=== PATIENT | female | born 1950 | race Caucasian/White ===

== ENCOUNTER 2018-03-03 06:00 | Emergency (ER) | payer MEDICARE, OTHER ==
--- NOTE | 2018-03-03 06:11 | ED Physician Documentation ---
PD HPI UPPER EXT INJURY - Stated complaint Stated Complaint: FALL/HAND INJURY - Chief complaint Chief Complaint: Trauma Ext - History obtained from History obtained from: Patient - History of Present Illness Location: Left, Wrist Type of injury: Fall Where injury occurred: A house / apartment Timing - onset: Enter time (approximately 22:00), Last night Timing - details: Abrupt onset Associated symptoms: Swelling. No: Weakness, Numbness Recently seen: Not recently seen - Additonal information Additional information: patient is visiting [facility], so she was not familiar with the layout of where she is staying. Last night at approximately 10 PM, she was walked towards a light fixture to turn it on and she tripped, fell backwards, injuring left wrist. She is right-hand dominant. c/o left wrist pain and swelling Review of Systems Musculoskeletal: reports: Joint pain (left wrist), Joint swelling (left wrist) Neurologic: denies: Focal weakness, Numbness, Head injury, LOC PD PAST MEDICAL HISTORY - Present Medications Home Medications: Ambulatory Orders Medication Instructions Recorded Confirmed oxyCODONE/ACET 5/325 [Percocet 5 1 - 2 each PO Q6H PRN #14 tablet 03/03/18 mg/325 mg] - Allergies Allergies/Adverse Reactions: Allergies Allergy/AdvReac Type Severity Reaction Status Date / Time acetaminophen [From Vicodin] AdvReac Rash Verified 03/03/18 06:14 hydrocodone [From Vicodin] AdvReac Rash Verified 03/03/18 06:14 PD ED PE NORMAL - Vitals Vital signs reviewed: Yes - General General: Alert and oriented X 3, No acute distress, Well developed/nourished - Neuro Neuro: No motor deficit, No sensory deficit PD ED PE EXPANDED - Extremities Extremities: Other (left wrist swelling, echymosis, tenderness (predominantly lateral aspect)) RIYA UE/Hands Visual: 1 - bruising, swelling, tenderness Results - Vitals Vitals: Vital Signs - 24 hr 03/03/18 06:05 Temperature 36.2 C L Heart Rate 77 Respiratory 17 Rate Blood Pressure 148/95 H O2 Saturation 98 Oxygen O2 Source Room air - Rads (name of study) left wrist xrays Radiology: Prelim report reviewed, See rad report Procedures - Splint (location) Upper extremity left Splint applied by: Physician Type of splint: Fiberglass, Short arm, Thumb spica Other: Patient tolerated well, No complications, Neurovascular intact, Sling provided PD MEDICAL DECISION MAKING - ED course Complexity details: reviewed results, re-evaluated patient, considered differential, d/w patient, d/w family ED course: declined analgesics in ED, will take ibuprofen PRN pain but also agrees with rx for percocet to use if ibuprofen ineffective. Departure - Departure Disposition: Home, Self Care Clinical Impression: Left wrist sprain Qualifiers: Encounter type: initial encounter Qualified Code(s): S63.502A - Unspecified sprain of left wrist, initial encounter Condition: Good Instructions: ED Sling, ED Splint Care Fiberglass, ED Sprain Wrist Follow-Up: Mushtaq Moore MD [Provider Admit Priv/Credential] - Within 1 week Prescriptions: oxyCODONE/ACET 5/325 [Percocet 5 mg/325 mg] 1 - 2 each PO Q6H PRN #14 tablet PRN Reason: Pain Discharge Date/Time: 03/03/18 07:50
[2018-03-03 06:14] VITALS: BP 148/95
--- NOTE | 2018-03-03 06:42 | XRAY Report ---
EXAM: LEFT WRIST RADIOGRAPHY EXAM DATE: 03/03/2018 06:27 AM. CLINICAL HISTORY: Fall, tenderness, pain. COMPARISON: None. TECHNIQUE: 4 views. FINDINGS: Bones: There is a small well-corticated fragment at the radial styloid region, representing a sequela of a remote injury versus unfused apophysis. No definite acutely displaced fracture or suspicious [place] lesion is demonstrated at this time. Joints: There is no dislocation demonstrated. Severe first CMC joint degenerative change. At least mi ld triscaphe joint degenerative change also present. Soft Tissues: No significant soft tissue swelling. IMPRESSION: No acute bony abnormality demonstrated. [facility] Referring Provider Line: [phone] SITE ID: [id number]
--- NOTE | 2018-03-03 06:42 | XRAY Preliminary Report ---
Exam: XR WRIST 3 VIEW LT IMPRESSION: No acute bony abnormality demonstrated. [facility] SITE ID: [id number]
== END 2018-03-03 07:50 | disposition home or self-care (01) ==
LOC: ED 06:00
DX: S63.502A Unspecified sprain of left wrist, initial encounter (principal); W01.10XA Fall on same level from slipping, tripping and stumbling with subsequent striking against unspecified object, initial encounter; Y93.01 Activity, walking, marching and hiking
CPT/HCPCS: 29125; 99283